=== PATIENT | male | born 1940 | race Caucasian/White ===

== ENCOUNTER 2019-08-16 15:06 | Emergency (ER) | payer MEDICARE, OTHER ==
[2019-08-16] MEDS ORDERED: Lidocaine 1% 30 ML SDV INJECT ONE (15:18)
--- NOTE | 2019-08-16 16:12 | EDM.PDOC ---
ED HPI GENERAL MEDICAL PROBLEM - General Chief Complaint: Laceration Time Seen by Provider: 08/16/19 15:06 Source of Information: Reports: Patient History Limitations: Reports: No Limitations - History of Present Illness INITIAL COMMENTS - FREE TEXT/NARRATIVE: Pt. presents to ER with complaints of laceration to R hand. Pt. states that he was using a sausage grinder and his dog hit his leg which caused the cutting blade to come in contact with the hand. States that his tetanus was up to date. Denies any injury other than what is isolated to the R hand. Onset: Today Onset Date: 08/16/19 Location: Reports: Upper Extremity, Right - Related Data Allergies Allergy/AdvReac Type Severity Reaction Status Date / Time No Known Allergies Allergy Verified 08/16/19 15:17 ED ROS GENERAL - Review of Systems Review Of Systems: Comprehensive ROS is negative, except as noted in HPI. ED EXAM, SKIN/RASH Exam: See Below Exam Limited By: No Limitations General Appearance: Alert, WD/WN, No Apparent Distress Extremities: Other (approx. 3 cm laceration noted to dorsal base of R thumb. No obvious involvement of the underlying structures. CMS intact. ROM is within normal limits.) ED SKIN PROCEDURES - Laceration/Wound Repair Right Dorsal Digit - 1st (Thumb) Appearance: Subcutaneous Distal NVT: Neuro & Vascular Intact, No Tendon Injury Anesthetic Type: Local Local Anesthesia - Lidocaine (Xylocaine): 1% Plain Local Anesthetic Volume: 3cc Skin Prep: Chlorhexidine (Hibiciens), Saline Saline Irrigation (cc's): 500 Exploration/Debridement/Repair: Wound Explored, Explored to Base Closed with: Sutures Lac/Wound length In cm: 3 Suture Size: 3-0 # of Sutures: 3 Suture Type: Nylon Course - Orders/Labs/Meds Meds: Medications Discontinued Medications Generic Name Dose Route Start Last Admin Trade Name Freq PRN Reason Stop Dose Admin Lidocaine HCl 30 ml 08/16/19 15:18 Xylocaine-Mpf 1% INJECT 08/16/19 15:19 ONETIME ONE Departure - Departure Time of Disposition: 16:14 Disposition: Home, Self-Care 01 Clinical Impression: Laceration - Discharge Information Instructions: Laceration Care, Adult Forms: ED Department Discharge Additional Instructions: Sutures out in 12 days Keep dry and bandaged for 24 hours, then keep open to air as much as possible. Sutures out in clinic - Problem List Review Problem List Initiated/Reviewed/Updated: Yes - Assessment/Plan Plan: Sutures out in 12 days Keep dry and bandaged for 24 hours, then keep open to air as much as possible. Sutures out in clinic
== END 2019-08-16 15:41 | disposition home or self-care (01) ==
LOC: VM.ED 15:06
DX: S61.011A Laceration without foreign body of right thumb without damage to nail, initial encounter (principal); W26.8XXA Contact with other sharp object(s), not elsewhere classified, initial encounter
CPT/HCPCS: 12002; 99282; 99283; J2001

== ENCOUNTER 2020-11-14 13:13 | Emergency (ER) | payer MEDICARE, OTHER ==
--- NOTE | 2020-11-14 13:33 | EDM.PDOC ---
ED HPI GENERAL MEDICAL PROBLEM - General Stated Complaint: FISH HOOK,INDEX FINGER LEFT HAND Time Seen by Provider: 11/14/20 13:22 Source of Information: Reports: Patient - History of Present Illness INITIAL COMMENTS - FREE TEXT/NARRATIVE: Patient was out fishing today and sustained a fish hook to his left index finger. Continued to fish, has been in there a couple of hours. NV intact. Unsure of his tetanus. Onset: Today Location: Reports: Upper Extremity, Left Associated Symptoms: Reports: No Other Symptoms - Related Data Allergies Allergy/AdvReac Type Severity Reaction Status Date / Time No Known Allergies Allergy Verified 08/16/19 15:17 Home Meds: Home Meds Glimepiride [Amaryl] 4 mg PO WITHBREAKFAST 08/16/19 [History] Simvastatin [Zocor] 20 mg PO BEDTIME 08/16/19 [History] Past Medical History Cardiovascular History: Reports: High Cholesterol Endocrine/Metabolic History: Reports: Diabetes, Type II Social & Family History - Tobacco Use Tobacco Use Status *Q: Never Tobacco User - Alcohol Use Alcohol Use History: No Alcohol Use in Last Twelve Months: No - Recreational Drug Use Recreational Drug Use: No Drug Use in Last 12 Months: No ED ROS GENERAL - Review of Systems Review Of Systems: See Below Constitutional: Reports: No Symptoms HEENT: Reports: No Symptoms Respiratory: Reports: No Symptoms Cardiovascular: Reports: No Symptoms Endocrine: Reports: No Symptoms GI/Abdominal: Reports: No Symptoms : Reports: No Symptoms Musculoskeletal: Reports: Other (fish hook in left index finger) Skin: Reports: No Symptoms Neurological: Reports: No Symptoms Psychiatric: Reports: No Symptoms ED EXAM, GENERAL - Physical Exam Exam: See Below Exam Limited By: No Limitations General Appearance: Alert Eye Exam: Bilateral Eye: EOMI, PERRL Nose: Normal Inspection Throat/Mouth: Normal Inspection, Normal Lips, Normal Voice Respiratory/Chest: No Respiratory Distress Cardiovascular: Regular Rate, Rhythm Extremities: Other (left index finger with fish hook in the dorsal distal phalanyx. NV intact, mobile, not embedded in the bone. no signs of infection) ED GENERAL MEDICAL PROCEDURES - Laceration/Wound Repair Digit - 2nd (Index) Lac/wound length in cm: 0.2 (fish hook embedded distally) Distal NVT: Neuro & Vascular Intact Anesthetic Type: Digital Local Anesthesia - Lidocaine (Xylocaine): 1% Plain Local Anesthetic Volume: 3cc Skin Prep: Isopropyl Alcohol (Alcohol) Exploration/Debridement/Repair: Wound Explored Tetanus Status Addressed: Other (patient unsure, no access to Thor, will check in two days) Complications: No Progress/Comments: after digital block the fish hook was backed out without problems. area washed, triple antibiotic applied. bandage applied. toleated well Course - Orders/Labs/Meds Meds: Medications Discontinued Medications Generic Name Dose Route Start Last Admin Trade Name Ella PRN Reason Stop Dose Admin Lidocaine HCl 5 ml 11/14/20 13:21 Lidocaine 1% 5 Ml Sdv INJECT 11/14/20 13:22 ONETIME ONE - Re-Assessments/Exams Free Text/Narrative Re-Assessment/Exam: 11/14/20 14:09 patient tolerated well. Will have him check his tetanus in two days at clinic opening. No access to thor. Thinks it is up to date in the last 5 years. Departure - Departure Time of Disposition: 13:37 Disposition: Home, Self-Care 01 Clinical Impression: Fish hook injury of index finger - Discharge Information *PRESCRIPTION DRUG MONITORING PROGRAM REVIEWED*: No *COPY OF PRESCRIPTION DRUG MONITORING REPORT IN PATIENT JOHNNIE: No Instructions: Puncture Wound, [id number] Additional Instructions: watch for signs of infection. If redness or drainage appears, see provider. Follow up with PCP as needed. Finger will be numb for the next hour or so. Check your tetanus status on Monday and if it has been 10 years, please update at the clinic
== END 2020-11-14 13:50 | disposition home or self-care (01) ==
LOC: VM.ED 13:13
DX: S60.451A Superficial foreign body of left index finger, initial encounter (principal); E78.00 Pure hypercholesterolemia, unspecified; E11.9 Type 2 diabetes mellitus without complications; Z79.899 Other long term (current) drug therapy; W45.8XXA Other foreign body or object entering through skin, initial encounter
CPT/HCPCS: 64450; 99283; 99283-25

== ENCOUNTER 2021-09-11 10:30 | Emergency (ER) | payer MEDICARE, OTHER | END 2021-09-11 12:33 | disposition home or self-care (01) | LOC: VM.ED 10:30 | DX: U07.1 COVID-19 (principal); E78.00 Pure hypercholesterolemia, unspecified; E11.9 Type 2 diabetes mellitus without complications; Z79.899 Other long term (current) drug therapy | CPT/HCPCS: 99283 ==

== ENCOUNTER 2021-09-12 17:56 | Emergency (ER) | payer MEDICARE, OTHER ==
[2021-09-12 19:33] LABS: CHLORIDE,CL 104 mmol/L (98-107); SODIUM,NA 138 mmol/L (136-145)
[2021-09-12 19:35] LABS: ANION GAP 11.3 mmol/L (5-15); ESTIMATED GFR 77 mL/min (>=60)
[2021-09-12] MEDS ORDERED: Iopamidol 755 Mg/ML 100 ML Bottle IVPUSH ONE (20:12)
== END 2021-09-12 23:06 | disposition home or self-care (01) ==
LOC: VM.ED 17:56
DX: R53.83 Other fatigue (principal); E78.00 Pure hypercholesterolemia, unspecified; E11.9 Type 2 diabetes mellitus without complications; Z86.16 Personal history of COVID-19; Z79.899 Other long term (current) drug therapy
CPT/HCPCS: 36415; 71045; 71275; 80053; 83605; 84484; 85025; 85379; 99285; Q9967

== ENCOUNTER 2022-08-08 09:25 | Day surgery (SDC) | payer MEDICARE, OTHER ==
[~2022-08-08 09:25] MED LIST: Lactated Ringers 1,000 ML IV SCH; Sodium Chloride 0.9% 10 ML Syringe FLUSH PRN
[2022-08-08] MEDS ORDERED: Propofol 200 MG/20 ML SDV ONE (10:46)
[2022-08-08] MEDS ORDERED: fentaNYL 100 MCG/2 ML SDV ONE (10:46)
== END 2022-08-08 12:45 | disposition home or self-care (01) ==
LOC: VM.SDS 09:25
PROVIDERS: ATTEND Surgery
DX: Z12.11 Encounter for screening for malignant neoplasm of colon (principal); E11.9 Type 2 diabetes mellitus without complications; M19.90 Unspecified osteoarthritis, unspecified site; E78.5 Hyperlipidemia, unspecified; Z79.899 Other long term (current) drug therapy; Z20.822 Contact with and (suspected) exposure to COVID-19
CPT/HCPCS: 00812; 82947; J2704; J3010; J7120

== ENCOUNTER 2023-05-24 11:38 | Emergency (ER) | payer MEDICARE ==
[2023-05-24] MEDS: Diphtheria,Pertussis(Acell),Tetanus Vaccine 0.5 ML Syringe IM ONE (12:52)
[2023-05-24] MEDS: Lidocaine 1% 10 ML MDV INJECT ONE (12:53)
== END 2023-05-24 12:40 | disposition home or self-care (01) ==
LOC: VM.ED 11:38
DX: S61.011A Laceration without foreign body of right thumb without damage to nail, initial encounter (principal); Z23 Encounter for immunization; E78.00 Pure hypercholesterolemia, unspecified; E11.9 Type 2 diabetes mellitus without complications; Z86.16 Personal history of COVID-19; Z79.899 Other long term (current) drug therapy; W29.8XXA Contact with other powered hand tools and household machinery, initial encounter
CPT/HCPCS: 12001; 90471; 90715; 99282-25; J3490

== ENCOUNTER 2023-12-12 22:41 | Emergency (ER) | payer MEDICARE ==
[2023-12-12] MEDS: Erythromycin Base 0.5% Ophth Oint 3.5 GM Tube EYEBOTH ONE (23:32)
[2023-12-12] MEDS: Fluorescein 1 MG Ophth Strip EYEBOTH ONE (23:32)
[2023-12-12] MEDS: Proparacaine 0.5% Ophth Soln 15 ML Bottle EYELF PRN (23:32)
[2023-12-13] MEDS ORDERED: Gentamicin 0.3% Ophth Soln 5 ML Bottle EYEBOTH SCH (09:00)
== END 2023-12-12 23:40 | disposition home or self-care (01) ==
LOC: VM.ED 22:41
DX: H16.133 Photokeratitis, bilateral (principal); E78.00 Pure hypercholesterolemia, unspecified; E11.9 Type 2 diabetes mellitus without complications; Z79.899 Other long term (current) drug therapy; Z86.16 Personal history of COVID-19
CPT/HCPCS: 99283; 99284; A9270-GY; J3490